=== PATIENT | female | born 1990 | race Hispanic/Latino ===

== ENCOUNTER 2016-12-19 19:33 | Observation (INO) | payer MEDICAID ==
[2016-12-19 19:33] VITALS: BMI 24.7
--- NOTE | 2016-12-19 20:06 | ED PDOC ---
Arrival/HPI - History of Present Illness Time/Duration: < week Symptom Onset: Gradual Symptom Course: Worsening Quality: Aching, Pressure, Throbbing Severity Level: 6 <Terry Sinha - Last Filed: 12/19/16 23:30> <Sylvester Kelloggmelva - Last Filed: 12/19/16 23:41> - General Chief Complaint: Dental Pain Time Seen by Provider: 12/19/16 19:39 - History of Present Illness Narrative History of Present Illness (Text): 12/19/16 20:22 26yo F with PMHx including Asthma here for evaluation of throat pain. Pain started few week ago as left sided mouth pain. She states that she went [place] [facility] [place] and was told she had a dental abscess. She was asked to follow up with a dentist and start taking oral ABX (Clindamycin 300mg TID x7 days) and Tylenol #3 with mild relief. She states that she started taking the Abx this morning. This morning, she woke up with pain that is radiating from left side of the mouth, down to her throat and neck so she came into the Emergency department for further evaluation. She denies any fevers or chills. No N/V/D. No Abd Pain. No Headaches. No gustatory changes. Does complain of difficulty swallowing. She states that she has been told she has "thyroid problem" in the past however, she has not followed up with a specialist. She states that she has had similar symptoms in the past and has been evaluated by a dentist who recommended getting lower left wisdom tooth extracted. Patient states that she is awaiting for her insurance to go through in order to be evaluated by an oral surgeon in order to proceed with the wisdom tooth extraction. PMHx: Asthma PSHx: Denies Social Hx: Smokes 1/2 pack per day, Denies any ETOH use, denies any illicit drugs NKDA 12/19/16 20:41 (Terry Sinha) Past Medical History - Provider Review Nursing Documentation Reviewed: Yes - Infectious Disease Hx of Infectious Diseases: None - Tetanus Immunization Tetanus Immunization: Unknown - Past Medical History Past Medical History: No Previous - Cardiac Hx Cardiac Disorders: No - Pulmonary Hx Asthma: Yes - Neurological Hx Neurological Disorder: No - HEENT Hx HEENT Disorder: No - Renal Hx Renal Disorder: No - Endocrine/Metabolic Hx Endocrine Disorders: No - Hematological/Oncological Hx Blood Disorders: No - Integumentary Hx Dermatological Disorder: No - Musculoskeletal/Rheumatological Hx Musculoskeletal Disorders: No - Gastrointestinal Hx Gastrointestinal Disorders: No - Genitourinary/Gynecological Hx Genitourinary Disorders: No - Psychiatric Hx Psychophysiologic Disorder: No Hx Substance Use: Yes (quit) - Past Surgical History Past Surgical History: No Previous - Anesthesia Hx Anesthesia: No Hx Anesthesia Reactions: No Hx Malignant Hyperthermia: No - Suicidal Assessment Feels Threatened In Home Enviroment: No <Terry Sinha - Last Filed: 12/19/16 23:30> Family/Social History - Physician Review Nursing Documentation Reviewed: Yes Family/Social History: No Known Family HX, Unknown Family HX Smoking Status: Heavy Smoker > 10 Cigarettes Daily Hx Alcohol Use: No Hx Substance Use: Yes (quit) Substance used: PCP Hx Substance Use Treatment: No <Terry Sinha - Last Filed: 12/19/16 23:30> Allergies/Home Meds <Terry Sinha - Last Filed: 12/19/16 23:30> <Geovanny Kellogg - Last Filed: 12/19/16 23:41> Allergies/Adverse Reactions: Allergies No Known Allergies Allergy (Verified 09/20/15 22:53) Home Medications: Home Meds Medication Instructions Recorded Confirmed buPROPion SR [Wellbutrin SR 150 MG] 1 tab PO DAILY 12/19/16 12/19/16 Review of Systems - Physician Review All systems were reviewed & negative as marked: Yes - Review of Systems Constitutional: absent: Fatigue, Weight Change, Fevers Eyes: absent: Vision Changes, Photophobia ENT: Sore Throat. absent: Hearing Changes, Tinnitus, Rhinorrhea Respiratory: absent: SOB, Cough, Wheezing Cardiovascular: absent: Chest Pain, Calf Pain, BLAKE Gastrointestinal: absent: Abdominal Pain, Nausea, Vomiting Genitourinary Female: absent: Dysuria Musculoskeletal: absent: Back Pain Skin: Abscess (Left mandibular/cheek swelling) Neurological: absent: Headache, Dizziness Endocrine: absent: Diaphoresis, Polyuria <Terry Sinha - Last Filed: 12/19/16 23:30> Physical Exam Vital Signs Reviewed: Yes Temperature: Afebrile Blood Pressure: Normal Pulse: Tachycardic Respiratory Rate: Normal Appearance: Positive for: Well-Appearing, Non-Toxic, Comfortable Pain Distress: Mild Mental Status: Positive for: Alert and Oriented X 3 - Systems Exam Head: Present: Atraumatic, Normocephalic Extroacular Muscles: Present: EOMI Mouth: Present: Moist Mucous Membranes, Normal Tounge, Other (left cheek swelling and tender to palpation. Dental abscess) Pharnyx: Present: Other (Thyromegaly noted. Tender to palpation of submandibular area. ). No: ERYTHEMA, EXUDATE, TONSILS ENLARGED, Peritonsilar Swelling, Muffled/Hoarse Voice, Strider Respiratory/Chest: Present: Clear to Auscultation, Good Air Exchange. No: Respiratory Distress, Accessory Muscle Use, Wheezes, Rhonchi Cardiovascular: Present: Normal S1, S2. No: Murmurs Abdomen: No: Tenderness, Distention, Rebound, Guarding, Rovsing's Sign Present Back: Present: Normal Inspection Upper Extremity: Present: Normal Inspection. No: Edema Lower Extremity: Present: Normal Inspection. No: Edema, CALF TENDERNESS Neurological: Present: GCS=15 Skin: Present: Warm, Other (Tender to palpation in submandibular area. Thyromegaly noted with tender to palpation. Erythema over skin in thyroid area) Psychiatric: Present: Alert, Oriented x 3 <Terry Sinha - Last Filed: 12/19/16 23:30> Medical Decision Making <Terry Sinha - Last Filed: 12/19/16 23:30> <Geovanny Kellogg - Last Filed: 12/19/16 23:41> ED Course and Treatment: 12/19/16 20:47 26yo F with Sore throat in the setting of left dental abscess - r/o Kar's - CT neck/Maxillofacial w/ contrast - CBC/CMP 12/19/16 23:30 Discussed with patient about her submandibular tenderness. Plan is for admission for IV abx and monitoring of submandibular region. - Prelim CT neck is negative for abscess or Kar's. - Discussed case with Retail Account Specialist. Will come evaluate the patient. - Added TSH, FT4 and Zosyn for abx coverage. - Dr. Tatyana malik who accepts patient to hospitalist service (Terry Sinha) Patient Seen With Resident: In agreement with resident note which contains more details about the patient. Patient was seen and evaluated with resident. Came up with plan and treatment together. A 26 year old female with throat pain. Additional HPI as noted by resident. On physical exam, patient has tender to palpation and swelling of left cheek, dental abscess, thyromegaly noted of pharynx and tender to palpation of submental area. Ordered CT neck soft tissue and CT maxillofacial and labs to rule out Kar's. 12/19/16 23:38 CT read as negative but ttp in the floor of the mouth with swelling in submental area; it is clinically concerning for a developing kar's - will place on observation on start on iv abx. Discussed with Dr. Joe for placement on the hospitalist service. (Geovanny Kellogg) - Lab Interpretations Lab Results: 12/19/16 20:55 12/19/16 20:55 Lab Results 12/19/16 20:55: Sodium 139, Potassium 4.1, Chloride 104, Carbon Dioxide 26, Anion Gap 13, BUN 12, Creatinine 0.8, Est GFR ( Amer) > 60, Est GFR (Non- Af Amer) > 60, Random Glucose 95, Calcium 9.4, Total Bilirubin 0.3, AST 17, ALT 16, Alkaline Phosphatase 56, Total Protein 6.6, Albumin 4.0, Globulin 2.7, Albumin/Globulin Ratio 1.5 12/19/16 20:55: WBC 6.5, RBC 3.98, Hgb 12.6, Hct 36.9, MCV 92.7, MCH 31.7, MCHC 34.1, RDW 12.8, Plt Count 228, MPV 9.7, Gran % 41.2 L, Lymph % (Auto) 41.2 H, Carl[place] % (Auto) 11.7 H, Eos % (Auto) 5.4 H, Baso % (Auto) 0.5, Gran # 2.69, Lymph # 2.7, Carl[place] # 0.8 H, Eos # 0.4, Baso # 0.03 - RAD Interpretation Radiology Orders: 12/19/16 20:31 NECK SOFT TISSUE W/CONTRAST [CT] Stat - Medication Orders Current Medication Orders: Piperacillin Sod/Tazobactam Sod (Zosyn 3.375 In Ns 100ml) 100 mls @ 200 mls/hr IVPB STAT STA PRN Reason: Protocol Stop: 12/19/16 23:50 Discontinued Medications Iohexol (Omnipaque 350 150 Ml) Confirm Administered Dose 150 ml .ROUTE .STK-MED ONE Stop: 12/19/16 22:06 - PA / 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 / has examined the patient and agrees with the treatment plan. <Terry Sinha - Last Filed: 12/19/16 23:30> Disposition/Present on Arrival - Present on Arrival Any Indicators Present on Arrival: No History of DVT/PE: No History of Uncontrolled Diabetes: No Urinary Catheter: No History of Decub. Ulcer: No History Surgical Site Infection Following: None - Disposition Have Diagnosis and Disposition been Completed?: Yes Disposition Time: 23:34 Patient Plan: Admission <Terry Sinha - Last Filed: 12/19/16 23:30> - Disposition Patient Plan: Observation <Geovanny Kellogg - Last Filed: 12/19/16 23:41> - Disposition Diagnosis: Dental abscess Disposition: HOSPITALIZED Patient Problems: Current Active Problems Problem Status Onset Dental abscess Acute Condition: FAIR Referrals: Gianfranco Kearns MD [Primary Care Provider] - Follow up with primary Forms: Pow[employer] by [employer] (Eritrean)
[2016-12-19 21:34] LABS: BASO # 0.03 K/mm3 (0.0-2.0); BASO % 0.5 % (0.0-3.0); EOS # 0.4 (0.0-0.7); EOS % 5.4 % (1.5-5.0); GRAN # 2.69 (1.4-6.5); GRAN % 41.2 % (50.0-68.0); HEMOGLOBIN 12.6 gm/dL (12.0-16.0); LYMPH # 2.7 (1.2-3.4); LYMPH % 41.2 % (22.0-35.0); MEAN CELL VOLUME 92.7 fL (80.0-105.0); MEAN CORPUSCULAR HEMOGLOBIN 31.7 pg (25.0-35.0); MEAN CORPUSCULAR HGB CONC 34.1 g/dl (31.0-37.0); MEAN PLATELET VOLUME 9.7 fl (7.0-11.0); MONO # 0.8 (0.1-0.6); MONO % 11.7 % (1.0-6.0); PLATELET COUNT 228 10^3/uL (120.0-450.0); RBC 3.98 10^6/uL (3.5-6.1); RED CELL DISTRIBUTION WIDTH 12.8 % (11.5-14.5); WHITE BLOOD COUNT 6.5 10^3/ul (4.5-11.0)
[2016-12-19 21:36] LABS: ALB/GLOB RATIO 1.5 (1.1-1.8); ALT/SGPT 16 U/L (7-56); AST/SGOT 17 U/L (15-39); BLOOD UREA NITROGEN 12 mg/dL (7-21); CALCIUM 9.4 mg/dL (8.4-10.5); GFR AFRICAN-AMERICAN > 60; GFR NON-AFRICAN AMERICAN > 60
--- NOTE | 2016-12-19 23:04 | CT ---
EXAM: CT Neck With Intravenous Contrast CLINICAL HISTORY: 26 years old, female; Pain; Neck pain and painful swallowing and throat pain; Patient HX: Dental infxn neck swelling. R/O anais's TECHNIQUE: Axial computed tomography images of the neck with intravenous contrast. This CT exam was performed using one or more of the following dose reduction techniques: automated exposure control, adjustment of the mA and/or kV according to patient size, and/or use of iterative reconstruction technique. Coronal and sagittal reformatted images were created and reviewed. CONTRAST: 96 mL of OMNIPAQUE 350 administered intravenously. COMPARISON: No relevant prior studies available. FINDINGS: Nasopharynx: Unremarkable. Oropharynx: No significant tonsillar enlargement. No peritonsillar abscess. Hypopharynx: Unremarkable. Larynx: Unremarkable. Normal epiglottis. Trachea: Unremarkable. Retropharyngeal space: Unremarkable. Submandibular/parotid glands: Unremarkable. Glands are normal in size. Thyroid: Mild diffuse enlargement. No discrete nodules. Bones/joints: No acute fracture. Soft tissues: Unremarkable. Vasculature: No acute findings. Lymph nodes: No pathologically enlarged lymph nodes. Sinuses: Mild mucosal thickening of ethmoid sinuses. Mild mucosal thickening of LEFT maxillary sinus. Minimal mucosal thickening of RIGHT maxillary sinus. Lung apices: Unremarkable as visualized. IMPRESSION: 1. No abscess. 2. Mild thyromegaly. 3. Sinus disease. 4. Incidental/non-acute findings are described above.
[2016-12-19] MEDS ORDERED: Piperacillin/Tazobact 3.375 gm 100 ML IVPB STA (23:21)
[2016-12-20] MEDS ORDERED: Aluminum Hydroxide/Magnesium 30 ML, DiphenhydrAMINE 75 MG, Lidocaine 2% Viscous 30 ML PO PRN (00:06)
[2016-12-20 00:09] LABS: FREE T4 1.31 ng/dL (0.78-2.19)
--- NOTE | 2016-12-20 00:22 | CP.PCM.HP ---
<Regulo Ríos - Last Filed: 12/20/16 00:15> History of Present Illness - History of Present Illness History of Present Illness: Regulo Ríos D.O. PGY-2, 24 hour call, Obs H&P CC: left lower jaw swelling and pain for multiple days 26 year old female with a PMH of asthma, never intubated, never hospitalized, and previous PCP addicition, now drug free, who presents to [facility] ER on 12/19/16 with complaints of left lower jaw swelling and pain. Patient states that for multiple days she has been having worsening pain and swelling of the left jaw. Patient states pain is 6-7/10 at it's worst, dull, constant, wrapping wrapping lower jaw and up on the left, not associated with any fevers, chills, headaches , blurry vision, but is associated with some nausea, with similar much milder episode in the past on the right side. Patient states she has been waiting on insurance authorization to get her left lower wisdom tooth removed but has been unable to get it done. Patient's previous episode on the right side was milder and resolved once patient had both right wisdom teeth removed. Patient states that she was at [facility] 2 days ago and was given clindamycin of which she's taken 4 doses and it did help with the swelling somewhat but now she has been getting pain and extension of the swelling down into the submandibular area so she got concerned and came in. PMH: as above PSH: wisdom tooth removal x2 SH: denies EtOH, occasional tobacco use for many years, previous PCP use now clean FH: mother has HTN, HLD, family hx of colon and breast CA Meds: albuterol inh PRN, rare use, clindamycin PO, wellbutrin for smoking cessation Allergies: NKA Present on Admission - Present on Admission Any Indicators Present on Admission: No Review of Systems - Constitutional Constitutional: absent: Chills, Fatigue, Fever, Headache - EENT Eyes: absent: Blind Spots, Blurred Vision, Change in Vision Ears: absent: Decreased Hearing, Ear Pain, Tinnitus, Abnormal Hearing - Cardiovascular Cardiovascular: absent: Chest Pain, Diaphoresis, Dyspnea - Respiratory Respiratory: absent: Cough, Dyspnea - Gastrointestinal Gastrointestinal: Nausea. absent: Abdominal Pain, Constipation, Diarrhea, Vomiting - Genitourinary Genitourinary: absent: Difficulty Urinating, Dysuria - Musculoskeletal Musculoskeletal: absent: Numbness, Stiffness - Integumentary Integumentary: Swelling. absent: Rash, Sores - Neurological Neurological: absent: Numbness, Tingling, Weakness Past Patient History - Infectious Disease Hx of Infectious Diseases: None - Tetanus Immunizations Tetanus Immunization: Unknown - Past Social History Smoking Status: Heavy Smoker > 10 Cigarettes Daily - CARDIAC Hx Cardiac Disorders: No - PULMONARY Hx Asthma: Yes - NEUROLOGICAL Hx Neurological Disorder: No - HEENT Hx HEENT Problems: No - RENAL Hx Chronic Kidney Disease: No - ENDOCRINE/METABOLIC Hx Endocrine Disorders: No - HEMATOLOGICAL/ONCOLOGICAL Hx Blood Disorders: No - INTEGUMENTARY Hx Dermatological Problems: No - MUSCULOSKELETAL/RHEUMATOLOGICAL Hx Musculoskeletal Disorders: No - GASTROINTESTINAL Hx Gastrointestinal Disorders: No - GENITOURINARY/GYNECOLOGICAL Hx Genitourinary Disorders: No - PSYCHIATRIC Hx Psychophysiologic Disorder: No Hx Substance Use: Yes (quit) - SURGICAL HISTORY Hx Surgeries: No - ANESTHESIA Hx Anesthesia: No Hx Anesthesia Reactions: No Hx Malignant Hyperthermia: No Meds Allergies/Adverse Reactions: Allergies Allergy/AdvReac Type Severity Reaction Status Date / Time nicotine Allergy RASH Verified 12/20/16 01:36 Physical Exam - Constitutional Additional comments: young female in NAD - Head Exam Head Exam: ATRAUMATIC, NORMOCEPHALIC - Eye Exam Eye Exam: EOMI, PERRL. absent: Conjunctival injection, Scleral icterus - ENT Exam ENT Exam: Mucous Membranes Moist, Normal Oropharynx, TM's Normal Bilaterally Additional comments: midline uvula, able to raise soft palate, mallampati 1, tonsils not enlarged, BL ear canals clear, no effusions, no TM perf - Neck Exam Additional comments: notable left sided jaw swelling, no definite fluctuance or otherwise noted, tenderness to palpation of left jaw by angle of mandible and submadibularly, some mild erythema - Respiratory Exam Respiratory Exam: Clear to Auscultation Bilateral. absent: Rales, Rhonchi, Wheezes - Cardiovascular Exam Cardiovascular Exam: RRR, +S1, +S2. absent: Gallop, Rubs, Systolic Murmur - GI/Abdominal Exam GI & Abdominal Exam: Normal Bowel Sounds, Soft. absent: Distended, Tenderness - Extremities Exam Extremities exam: Positive for: pedal pulses present. Negative for: calf tenderness, pedal edema, tenderness - Neurological Exam Neurological exam: Alert, CN II-XII Intact, Oriented x3 - Skin Skin Exam: Dry, Warm Results - Vital Signs Recent Vital Signs: Last Vital Signs Temp 98.8 F 12/19/16 19:57 Pulse 106 H 12/19/16 19:57 Resp 18 12/19/16 19:57 BP 119/74 12/19/16 19:57 Pulse Ox 97 12/19/16 19:57 - Labs Result Diagrams: 12/19/16 20:55 12/19/16 20:55 Assessment & Plan - Assessment and Plan (Free Text) Assessment: 26 year old female with a PMH of previous PCP abuse with left jaw pain and swelling which worsened despite outpatient antibiotic therapy Plan: 1. Left jaw and submandibular swelling and tenderness Poss abscess, CT of neck read as negative, no Kar's Given zosyn x1 in the ER Started on unasyn IV Afebrile No leukocytosis Apply warm compresses HOB 30 Encourage PO fluids Magic mouth wash PRN Pain control Vitals q8h 2. Tobacco abuse Encouraged smoking cessation, patient amenable Will add nicotine patch DVT ppx: SCDs - Date & Time Date: 12/20/16 Time: 00:05 <Ashlee Joe - Last Filed: 12/20/16 03:57> Results - Vital Signs Recent Vital Signs: Last Vital Signs Temp 98.9 F 12/20/16 02:40 Pulse 94 H 12/20/16 02:40 Resp 16 12/20/16 02:40 BP 113/72 12/20/16 02:40 Pulse Ox 98 12/20/16 01:59 - Labs Result Diagrams: 12/19/16 20:55 12/19/16 20:55 Attending/Attestation - Attestation I have personally seen and examined this patient.: Yes I have fully participated in the care of the patient.: Yes I have reviewed all pertinent clinical information: Yes Notes (Text): 12/20/16 03:49 Patient was seen when she was in bed # 4 in the ER. Agree with history , physical examination, assessment and plan.
[2016-12-20 02:00] VITALS: O2SAT 98
[2016-12-20 03:09] VITALS: BP 113/72; PULSE 94; RESP 16; TEMP 98.9
[2016-12-20] MEDS ORDERED: Oxycodone/Acetaminophen 5/325 mg Tab PO STA (03:48)
[2016-12-20] MEDS: Ampicillin/Sulbactam 3 GM in Sodium Chloride 0.9% 100 ML IVPB SCH ×2 (05:28→11:10)
[2016-12-20] MEDS ORDERED: buPROPion SR 150 MG TABLET PO SCH (10:00)
[2016-12-20] MEDS ORDERED: Morphine 2 mg/ml ISec IVP STA (10:13)
--- NOTE | 2016-12-20 15:24 | CP.PCM.DIS ---
<OlmanMey - Last Filed: 12/20/16 15:57> Provider - Provider Date of Admission: 12/19/16 23:33 Attending physician: Iveth Maher MD Primary care physician: Gianfranco Kearns MD Consults: ENT consult:Dr. Santos Time Spent in preparation of Discharge (in minutes): 20 Hospital Course - Lab Results Lab Results: Most Recent Lab Values WBC 6.5 10^3/ul (4.5-11.0) 12/19/16 20:55 RBC 3.98 10^6/uL (3.5-6.1) 12/19/16 20:55 Hgb 12.6 gm/dL (12.0-16.0) 12/19/16 20:55 Hct 36.9 % (36.0-48.0) 12/19/16 20:55 MCV 92.7 fL (80.0-105.0) 12/19/16 20:55 MCH 31.7 pg (25.0-35.0) 12/19/16 20:55 MCHC 34.1 g/dl (31.0-37.0) 12/19/16 20:55 RDW 12.8 % (11.5-14.5) 12/19/16 20:55 Plt Count 228 10^3/uL (120.0-450.0) 12/19/16 20:55 MPV 9.7 fl (7.0-11.0) 12/19/16 20:55 Gran % 41.2 % (50.0-68.0) L 12/19/16 20:55 Lymph % (Auto) 41.2 % (22.0-35.0) H 12/19/16 20:55 [place] % (Auto) 11.7 % (1.0-6.0) H 12/19/16 20:55 Eos % (Auto) 5.4 % (1.5-5.0) H 12/19/16 20:55 Baso % (Auto) 0.5 % (0.0-3.0) 12/19/16 20:55 Gran # 2.69 (1.4-6.5) 12/19/16 20:55 Lymph # 2.7 (1.2-3.4) 12/19/16 20:55 [place] # 0.8 (0.1-0.6) H 12/19/16 20:55 Eos # 0.4 (0.0-0.7) 12/19/16 20:55 Baso # 0.03 K/mm3 (0.0-2.0) 12/19/16 20:55 Sodium 139 mmol/L (132-148) 12/19/16 20:55 Potassium 4.1 mmol/L (3.6-5.0) 12/19/16 20:55 Chloride 104 mmol/L (95-110) 12/19/16 20:55 Carbon Dioxide 26 mmol/L (21-33) 12/19/16 20:55 Anion Gap 13 (10-20) 12/19/16 20:55 BUN 12 mg/dL (7-21) 12/19/16 20:55 Creatinine 0.8 mg/dL (0.5-1.4) 12/19/16 20:55 Est GFR ( Amer) > 60 12/19/16 20:55 Est GFR (Non-Af Amer) > 60 12/19/16 20:55 Random Glucose 95 mg/dL (70-110) 12/19/16 20:55 Calcium 9.4 mg/dL (8.4-10.5) 12/19/16 20:55 Total Bilirubin 0.3 mg/dL (0.2-1.3) 12/19/16 20:55 AST 17 U/L (15-39) 12/19/16 20:55 ALT 16 U/L (7-56) 12/19/16 20:55 Alkaline Phosphatase 56 U/L (38-133) 12/19/16 20:55 Total Protein 6.6 g/dL (5.8-8.3) 12/19/16 20:55 Albumin 4.0 g/dL (3.0-4.8) 12/19/16 20:55 Globulin 2.7 gm/dL 12/19/16 20:55 Albumin/Globulin Ratio 1.5 (1.1-1.8) 12/19/16 20:55 Free T4 1.31 ng/dL (0.78-2.19) 12/19/16 20:55 TSH 3rd Generation 1.68 mIU/mL (0.46-4.68) 12/19/16 20:55 - Hospital Course Hospital Course: CC: left lower jaw swelling and pain for multiple days arrived at the ED 12/19/16 20:06 for left lower jaw swelling and pain. Patient states she has left lower jaw swelling an pain, which has occured for multiple days, worsening in nature. Patient rates the pain 7/10. Dull, constant. Patient denied fever, chills, headaches, blurry vision, nausea. Patient has had a milder jaw pain on the right side in the past, resolved with right wisdom teeth removal. Patient states she has been waiting on insurance authorization to get her left lower wisdom tooth removed but has been unable to get it done. Patient was given clindamycin at [facility] 2 days ago. 4 doses were taken. Pain has extended to neck (left sided) and left submandibular area. PT S&E at bedside. SAY. Dr. Santos consulted for ENT PMH: as above PSH: wisdom tooth removal x2 SH: denies EtOH, occasional tobacco use for many years, previous PCP use now clean FH: mother has HTN, HLD, family hx of colon and breast CA Meds: albuterol inh PRN, rare use, clindamycin PO, wellbutrin for smoking cessation Allergies: NKA Patient was given Zosyn in the ED.Patient was given nicotine patches, ibuprofen x 1 dose at 2 am , percocet x 1 dose at 3am , tylenol for pain around 6am.Patient was given 2 mg IVP after rounds due to the severity of the patient' s pain. Patient is stable enough to discharge and have patient return to ED if symptoms worsen. [facility] [place] [facility] to treat the possible abscess/infection - Date & Time of H&P Date of H&P: 12/20/16 Time of H&P: 15:58 Discharge Exam - Head Exam Head Exam: ATRAUMATIC, NORMOCEPHALIC - Eye Exam Eye Exam: EOMI, Normal appearance - ENT Exam ENT Exam: Mucous Membranes Moist. absent: Normal Oropharynx Additional comments: left gum inflammation (erythema) primarily in left lower molars. No signs of bleeding, - Neck Exam Neck exam: Full Rom, Tenderness Additional comments: left neck pain. no signs of obstructed breathing, tracheal deviation or thyromegaly - Cardiovascular Exam Cardiovascular Exam: REGULAR RHYTHM - Extremities Exam Extremities exam: full ROM - Back Exam Back exam: FULL ROM - Neurological Exam Neurological exam: Alert, Normal Gait, Oriented x3 - Psychiatric Exam Psychiatric exam: Flat Affect, Normal Mood - Skin Skin Exam: Dry, Intact, Normal Color, Warm Discharge Plan - Discharge Medications Prescriptions: Amoxicillin 500 mg PO Q8 #15 tablet oxyCODONE/Acetaminophen [Percocet 5/325 mg Tab] 1 ea PO Q6 PRN #9 tab PRN Reason: Pain, Moderate (4-7) - Follow Up Plan Condition: FAIR Disposition: HOME/ ROUTINE Patient education suggested?: Yes Instructions: Dental Abscess (GEN), Abscess (GEN) Additional Instructions: 1. Follow up with PMD in 1 week. 2. Follow up with [facility] dental surgeon on Tuesday. return to ED if symptoms worse (ie: numbness, difficulty swallowing, difficulty breathing, larger area of swelling) Referrals: Gianfranco Kearsn MD [Primary Care Provider] - <Iveth Maher - Last Filed: 12/20/16 17:06> Provider - Provider Date of Admission: 12/19/16 23:33 Attending physician: Iveth Maher MD Primary care physician: Gianfranco Kearns MD Hospital Course - Lab Results Lab Results: Most Recent Lab Values WBC 6.5 10^3/ul (4.5-11.0) 12/19/16 20:55 RBC 3.98 10^6/uL (3.5-6.1) 12/19/16 20:55 Hgb 12.6 gm/dL (12.0-16.0) 12/19/16 20:55 Hct 36.9 % (36.0-48.0) 12/19/16 20:55 MCV 92.7 fL (80.0-105.0) 12/19/16 20:55 MCH 31.7 pg (25.0-35.0) 12/19/16 20:55 MCHC 34.1 g/dl (31.0-37.0) 12/19/16 20:55 RDW 12.8 % (11.5-14.5) 12/19/16 20:55 Plt Count 228 10^3/uL (120.0-450.0) 12/19/16 20:55 MPV 9.7 fl (7.0-11.0) 12/19/16 20:55 Gran % 41.2 % (50.0-68.0) L 12/19/16 20:55 Lymph % (Auto) 41.2 % (22.0-35.0) H 12/19/16 20:55 [place] % (Auto) 11.7 % (1.0-6.0) H 12/19/16 20:55 Eos % (Auto) 5.4 % (1.5-5.0) H 12/19/16 20:55 Baso % (Auto) 0.5 % (0.0-3.0) 12/19/16 20:55 Gran # 2.69 (1.4-6.5) 12/19/16 20:55 Lymph # 2.7 (1.2-3.4) 12/19/16 20:55 [place] # 0.8 (0.1-0.6) H 12/19/16 20:55 Eos # 0.4 (0.0-0.7) 12/19/16 20:55 Baso # 0.03 K/mm3 (0.0-2.0) 12/19/16 20:55 Sodium 139 mmol/L (132-148) 12/19/16 20:55 Potassium 4.1 mmol/L (3.6-5.0) 12/19/16 20:55 Chloride 104 mmol/L (95-110) 12/19/16 20:55 Carbon Dioxide 26 mmol/L (21-33) 12/19/16 20:55 Anion Gap 13 (10-20) 12/19/16 20:55 BUN 12 mg/dL (7-21) 12/19/16 20:55 Creatinine 0.8 mg/dL (0.5-1.4) 12/19/16 20:55 Est GFR ( Amer) > 60 12/19/16 20:55 Est GFR (Non-Af Amer) > 60 12/19/16 20:55 Random Glucose 95 mg/dL (70-110) 12/19/16 20:55 Calcium 9.4 mg/dL (8.4-10.5) 12/19/16 20:55 Total Bilirubin 0.3 mg/dL (0.2-1.3) 12/19/16 20:55 AST 17 U/L (15-39) 12/19/16 20:55 ALT 16 U/L (7-56) 12/19/16 20:55 Alkaline Phosphatase 56 U/L (38-133) 12/19/16 20:55 Total Protein 6.6 g/dL (5.8-8.3) 12/19/16 20:55 Albumin 4.0 g/dL (3.0-4.8) 12/19/16 20:55 Globulin 2.7 gm/dL 12/19/16 20:55 Albumin/Globulin Ratio 1.5 (1.1-1.8) 12/19/16 20:55 Free T4 1.31 ng/dL (0.78-2.19) 12/19/16 20:55 TSH 3rd Generation 1.68 mIU/mL (0.46-4.68) 12/19/16 20:55 Attending/Attestation - Attestation I have personally seen and examined this patient.: Yes I have fully participated in the care of the patient.: Yes I have reviewed all pertinent clinical information, including history, physical exam and plan: Yes Notes (Text): 12/20/16 17:03 attending note; Patient seen and examined with resident. Patient is a 26-year female admitted with left sided dental pain/ wisdom tooth. the patient was evaluated by [facility] dentist last month. currently mild swelling in the left face. No abscess. treated with IV Unasyn. We will be discharged with home with by mouth amoxicillin and Percocet. Follow-up with [facility] on tuesday. Diagnosis; wisdom tooth Facial swelling Dental caries
== END 2016-12-20 15:34 | disposition home or self-care (01) ==
LOC: ED 19:33 → ERH 23:33 → 3RNO 12-20 02:09
PROVIDERS: ADMIT Internal Medicine; ATTEND Internal Medicine
DX: R22.9 Localized swelling, mass and lump, unspecified (principal); R68.84 Jaw pain; K02.9 Dental caries, unspecified; J45.909 Unspecified asthma, uncomplicated; R13.10 Dysphagia, unspecified; F17.210 Nicotine dependence, cigarettes, uncomplicated
CPT/HCPCS: 70491; 80053; 84439; 84443; 85025; 99283; G0378; J0295; J2270; J2543; Q9967

== ENCOUNTER 2017-11-20 13:03 | Emergency (ER) | payer MEDICAID ==
[2017-11-20 13:04] VITALS: BMI 24.7
[2017-11-20 13:19] VITALS: RESP 18; TEMP 97.7; O2SAT 99
[2017-11-20] MEDS ORDERED: Insulin Regular 100 UNITS in Sodium Chloride 0.9% 99 ML IV PRN (13:24)
--- NOTE | 2017-11-20 13:39 | ED PDOC ---
Arrival/HPI - General Chief Complaint: Dental Pain Time Seen by Provider: 11/20/17 13:17 Historian: Patient - History of Present Illness Narrative History of Present Illness (Text): 11/20/17 13:15 A 27 year old female, whose past medical history includes asthma, presents to the emergency department complaining of dental pain and left-side facial swelling. Patient reports visiting [facility] for evaluation of dental pain and swelling, due to it becoming worse, and was prescribed Amoxicillin and Tylenol Codeine. Patient had some relief with the Tylenol Codeine until it caused her to vomit. Notes also experiencing difficulty eating/drinking secondary to nausea. Patient denies any other complaints at this time. Also, patient mentions she has an appointment at [facility] dental clinic to have left wisdom tooth removed.tomorrow. She states that at the last appointment, she did have an intraoral drainage which obtained a small amount of pus. Symptom Onset: Gradual Symptom Course: Unchanged, Worsening Past Medical History - Provider Review Nursing Documentation Reviewed: Yes - Infectious Disease Hx of Infectious Diseases: None - Tetanus Immunization Tetanus Immunization: Unknown - Reproductive Menopause: No - Past Medical History Past Medical History: No Previous - Cardiac Hx Cardiac Disorders: No - Pulmonary Hx Asthma: Yes - Neurological Hx Neurological Disorder: No - HEENT Hx HEENT Disorder: No - Renal Hx Renal Disorder: No - Endocrine/Metabolic Hx Endocrine Disorders: No - Hematological/Oncological Hx Blood Disorders: No - Integumentary Hx Dermatological Disorder: No - Musculoskeletal/Rheumatological Hx Falls: No - Gastrointestinal Hx Gastrointestinal Disorders: No - Genitourinary/Gynecological Hx Genitourinary Disorders: No - Psychiatric Hx Psychophysiologic Disorder: No Hx Substance Use: Yes (quit) - Past Surgical History Past Surgical History: No Previous - Anesthesia Hx Anesthesia: No Hx Anesthesia Reactions: No Hx Malignant Hyperthermia: No - Suicidal Assessment Feels Threatened In Home Enviroment: No Family/Social History - Physician Review Nursing Documentation Reviewed: Yes Family/Social History: No Known Family HX Smoking Status: Current Some Days Smoker Hx Alcohol Use: No Hx Substance Use: Yes (quit) Substance used: PCP Hx Substance Use Treatment: No Allergies/Home Meds Allergies/Adverse Reactions: Allergies nicotine Allergy (Verified 12/20/16 01:36) RASH Home Medications: Home Meds Medication Instructions Recorded Confirmed buPROPion SR [Wellbutrin SR 150 MG] 1 tab PO DAILY 12/19/16 12/19/16 Review of Systems - Physician Review All systems were reviewed & negative as marked: Yes - Review of Systems ENT: Other (dental pain with left-side facial swelling.) Gastrointestinal: Nausea, Vomiting (occurred when taking prescribed Tylenol Codeine.), Appetite Changes (difficulty eating/drinking secondary to nausea.) Physical Exam - Physical Exam Narrative Physical Exam (Text): Constitutional: No acute distress. Head: Normocephalic. Atraumatic. Eyes: PERRL. ENT: Moist mucous membranes. Uvula midline. No peritonsillar abscess. Positive trismus. Neck: Supple. No nuchal rigidity Cardiovascular: Regular rate. Chest: No tenderness. Respiratory: Clear to auscultation bilaterally. GI: Soft. Nontender. Nondistended. Back: No CVA tenderness. Musculoskeletal: No tenderness or swelling of extremities. Skin: No rash. Neurologic: Alert, no focal deficit. Vital Signs Reviewed: Yes Vital Signs Temp Pulse Resp BP Pulse Ox 11/20/17 15:04 91 H 18 114/65 99 11/20/17 13:18 97.7 F 100 H 18 116/69 99 Temperature: Afebrile Blood Pressure: Normal Pulse: Regular Respiratory Rate: Normal Appearance: Positive for: Well-Appearing, Non-Toxic, Comfortable Pain Distress: None Mental Status: Positive for: Alert and Oriented X 3 Medical Decision Making ED Course and Treatment: 11/20/17 13:18 Impression: 27 year old female with dental pain and left-side facial swelling. Physical exam shows no nuchal rigidity; uvula midline, no peritonsillar abscess , positive trismus. Plan: -- Zofran -- Reassess and disposition Prior Visits: Notes and results from previous visits were reviewed. Patient was last seen in the emergency department on 12/19/2016 for throat and dental pain. Patient was admitted to hospital. Progress Notes: Patient given Percocet after Zofran, was able to keep medication down, states medication for nausea was very effective and feels comfortable to go home and continue her medications with Zofran. I encouraged patient to keep appointment for dental tomorrow and should she miss appointment and there is any worsening fever, stiff neck, dyspnea, vomiting, swelling, she should return to an ER immediately. - Medication Orders Current Medication Orders: Discontinued Medications Ondansetron HCl (Zofran Odt) 8 mg PO STAT STA Stop: 11/20/17 13:19 Last Admin: 11/20/17 13:46 Dose: 8 mg Oxycodone/Acetaminophen (Percocet 5/325 Mg Tab) 1 tab PO STAT STA Stop: 11/20/17 13:58 Last Admin: 11/20/17 14:40 Dose: 1 tab MAR Pain Assessment Document 11/20/17 14:40 TOPHER (Rec: 11/20/17 14:42 TOPHER [id number]) Pain Reassessment Is this a pain reassessment? Yes Presence of Pain Presence of Pain Yes Pain Scale Used Pain Scale Used Numeric Description Description Constant Intensity of Pain at present 10 - Scribe Statement The provider has reviewed the documentation as recorded by the Mikel Patel Provider Scribe Attestation: All medical record entries made by the Scribe were at my direction and personally dictated by me. I have reviewed the chart and agree that the record accurately reflects my personal performance of the history, physical exam, medical decision making, and the department course for this patient. I have also personally directed, reviewed, and agree with the discharge instructions and disposition. Disposition/Present on Arrival - Present on Arrival Any Indicators Present on Arrival: No History of DVT/PE: No History of Uncontrolled Diabetes: No Urinary Catheter: No History of Decub. Ulcer: No History Surgical Site Infection Following: None - Disposition Have Diagnosis and Disposition been Completed?: Yes Diagnosis: Pain, dental Disposition: HOME/ ROUTINE Disposition Time: 15:34 Patient Plan: Discharge Condition: STABLE Discharge Instructions (ExitCare): Dental Pain (DC) Prescriptions: Ondansetron ODT [Zofran ODT] 8 mg PO Q8H #12 odt Forms: [employer] ([place])
[2017-11-20] MEDS ORDERED: Oxycodone/Acetaminophen 5/325 mg Tab PO STA (13:57)
[2017-11-20 15:16] VITALS: BP 114/65; PULSE 91
== END 2017-11-20 15:37 | disposition home or self-care (01) ==
LOC: ED 13:03
DX: K08.89 Other specified disorders of teeth and supporting structures (principal)

== ENCOUNTER 2018-03-18 20:30 | Emergency (ER) | payer MEDICAID ==
[2018-03-18 22:09] VITALS: RESP 18; TEMP 98.1; BMI 24.0
[2018-03-18] MEDS ORDERED: Sodium Chloride 0.9% 1,000 ML IV STA (23:01)
--- NOTE | 2018-03-18 23:13 | ED PDOC ---
Arrival/HPI <Robin Peterson - Last Filed: 03/19/18 00:41> - General Historian: Patient - History of Present Illness Narrative History of Present Illness (Text): 03/18/18 23:10 28 y/o female, no significant pmh, allergic to nicotine, c/o nasal congestion/sinus headache/vomiting and coughing x 3 days. Pt. stated that she has nasal congestion, associated with sinus congestion, stated that has been coughing associated with vomiting after excessive coughing, no night sweat, no rash, no dizziness, no numbness or tingling, no other medical or psychological complaints. <Jonathan Bonilla - Last Filed: 03/19/18 02:17> - General Chief Complaint: Flu-like Symptoms Time Seen by Provider: 03/18/18 23:01 Past Medical History - Provider Review Nursing Documentation Reviewed: Yes - Infectious Disease Hx of Infectious Diseases: None - Tetanus Immunization Tetanus Immunization: Unknown - Past Medical History Past Medical History: No Previous - Cardiac Hx Cardiac Disorders: No - Pulmonary Hx Asthma: Yes - Neurological Hx Neurological Disorder: No - HEENT Hx HEENT Disorder: No - Renal Hx Renal Disorder: No - Endocrine/Metabolic Hx Endocrine Disorders: No - Hematological/Oncological Hx Blood Disorders: No - Integumentary Hx Dermatological Disorder: No - Musculoskeletal/Rheumatological Hx Falls: No - Gastrointestinal Hx Gastrointestinal Disorders: No - Genitourinary/Gynecological Hx Genitourinary Disorders: No - Psychiatric Hx Psychophysiologic Disorder: No Hx Substance Use: Yes (quit) - Past Surgical History Past Surgical History: No Previous - Anesthesia Hx Anesthesia: No Hx Anesthesia Reactions: No Hx Malignant Hyperthermia: No - Suicidal Assessment Feels Threatened In Home Enviroment: No <Jonathan Bonilla - Last Filed: 03/19/18 02:17> Family/Social History - Physician Review Nursing Documentation Reviewed: Yes Family/Social History: Unknown Family HX Smoking Status: Current Some Days Smoker Hx Alcohol Use: No Hx Substance Use: Yes (quit) Substance used: PCP Hx Substance Use Treatment: No <Jonathan Bonilla - Last Filed: 03/19/18 02:17> Allergies/Home Meds <Robin Peterson - Last Filed: 03/19/18 00:41> <Jonathan Bonilla - Last Filed: 03/19/18 02:17> Allergies/Adverse Reactions: Allergies nicotine Allergy (Verified 08/07/17 01:36) RASH Review of Systems - Review of Systems Constitutional: absent: Fatigue, Fevers Eyes: absent: Vision Changes ENT: Rhinorrhea, Sinus Congestion. absent: Sore Throat Respiratory: Cough. absent: SOB, Sputum, Wheezing Cardiovascular: absent: Chest Pain Gastrointestinal: Vomiting. absent: Abdominal Pain, Diarrhea, Nausea Musculoskeletal: absent: Arthralgias, Back Pain, Myalgias Skin: absent: Rash, Pruritis Neurological: absent: Headache, Dizziness Psychiatric: absent: Anxiety, Depression, Suicidal Ideation <Jonathan Bonilla - Last Filed: 03/19/18 02:17> Physical Exam Vital Signs Temp Pulse Resp BP Pulse Ox 03/18/18 22:08 98.1 F 119 H 18 116/74 99 <Robin ePterson - Last Filed: 03/19/18 00:41> Vital Signs Reviewed: Yes Vital Signs Temp Pulse Resp BP Pulse Ox 03/18/18 22:08 98.1 F 119 H 18 116/74 99 Temperature: Afebrile Blood Pressure: Normal Pulse: Tachycardic Respiratory Rate: Normal Appearance: Positive for: Well-Appearing, Non-Toxic, Comfortable Pain Distress: Moderate Mental Status: Positive for: Alert and Oriented X 3 - Systems Exam Head: Present: Atraumatic, Normocephalic, Other (+lt. maxillary and sinus tenderness with no facial or periorbital swelling. ). No: Tenderness, Contusion, Swelling, Ecchymosis, Abrasion, Laceration Pupils: Present: PERRL Extroacular Muscles: Present: EOMI Conjunctiva: Present: Normal Ears: Present: NORMAL TM, Normal Canal. No: Erythema, TM Bulging, Fluid, TM Perf Mouth: Present: Moist Mucous Membranes Pharnyx: No: ERYTHEMA, EXUDATE, TONSILS ENLARGED, Peritonsilar Swelling, Uvular Deviation, Muffled/Hoarse Voice Nose (External): Present: Atraumatic. No: Abrasion, Contusion, Laceration Nose (Internal): Present: Normal Inspection, No Active Bleeding. No: Rhinorrhea, Septal Hematoma, Epistaxis Neck: Present: Normal Range of Motion, Trachea Midline. No: Meningeal Signs, MIDLINE TENDERNESS, Paraspinal Tenderness, Lymphadenopathy Respiratory/Chest: Present: Clear to Auscultation, Good Air Exchange, Rhonchi. No: Respiratory Distress, Accessory Muscle Use, Wheezes, Decreased Breath Sounds, Rales, Retracting, Tachypneic Cardiovascular: Present: Regular Rate and Rhythm, Normal S1, S2. No: Murmurs Abdomen: Present: Normal Bowel Sounds. No: Tenderness, Distention, Peritoneal Signs, Rebound, Guarding Back: Present: Normal Inspection. No: CVA Tenderness, Midline Tenderness, Paraspinal Tenderness, Pain with Leg Raise, Decubitus Ulcer Upper Extremity: Present: Normal Inspection, Normal ROM, NORMAL PULSES, Capillary Refill < 2s. No: Cyanosis, Edema, Deformity Lower Extremity: Present: Normal Inspection, NORMAL PULSES, Normal ROM, Neurovascularly Intact, Capillary Refill < 2 s. No: Edema, Tenderness, Swelling, Deformity Neurological: Present: GCS=15, CN II-XII Intact, Speech Normal, Motor Func Grossly Intact, Normal Cerebellar Funct, Gait Normal, Memory Normal Skin: Present: Warm, Dry, Normal Color. No: Rashes, Diaphoretic, Erythematous Lymphatic: No: Cervical Adenopathy Psychiatric: Present: Alert, Oriented x 3, Normal Insight, Normal Concentration <Jonathan Bonilla Q - Last Filed: 03/19/18 02:17> Medical Decision Making - Lab Interpretations Lab Results: 03/18/18 00:18 03/18/18 00:18 Lab Results 03/18/18 00:18: Sodium 140, Potassium 3.4 L, Chloride 108 H, Carbon Dioxide 22, Anion Gap 14, BUN 17, Creatinine 0.5 L, Est GFR ( Amer) > 60, Est GFR (Non-Af Amer) > 60, Random Glucose 105, Calcium 9.3, Total Bilirubin 0.3, AST 25, ALT 21, Alkaline Phosphatase 60, Total Protein 7.7, Albumin 4.3, Globulin 3.4, Albumin/Globulin Ratio 1.3 03/18/18 00:18: WBC 6.0, RBC 4.43, Hgb 13.8, Hct 40.5, MCV 91.4, MCH 31.2, MCHC 34.1, RDW 13.0, Plt Count 316, MPV 9.4, Gran % 61.6, Lymph % (Auto) 27.7, [place] % (Auto) 10.1 H, Eos % (Auto) 0.3 L, Baso % (Auto) 0.3, Gran # 3.71, Lymph # (Auto) 1.7, [place] # (Auto) 0.6, Eos # (Auto) 0.0, Baso # (Auto) 0.02 - RAD Interpretation Radiology Orders: 03/18/18 23:09 CHEST PORTABLE [RAD] Stat - Medication Orders Current Medication Orders: Discontinued Medications Sodium Chloride (Sodium Chloride 0.9%) 1,000 mls @ 999 mls/hr IV .Q1H1M STA Stop: 03/19/18 00:01 Last Admin: 03/18/18 23:34 Dose: 999 mls/hr eMAR Start Stop Document 03/18/18 23:34 JOL (Rec: 03/18/18 23:35 [id number] Intravenous Solution Start Date 03/18/18 Start Time 23:34 End Date 03/19/18 End time 00:35 Total Infusion Time 61 Ketorolac Tromethamine (Toradol) 30 mg IVP STAT STA Stop: 03/18/18 23:02 Last Admin: 03/18/18 23:34 Dose: 30 mg MAR Pain Assessment Document 03/18/18 23:34 JOL (Rec: 03/18/18 23:34 [id number]) Pain Reassessment Is this a pain reassessment? No Sleep Is patient sleeping during reassessment? 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 Description Intensity of Pain at present 7 IVP Administration Document 03/18/18 23:34 JOL (Rec: 03/18/18 23:34 [id number]) Charges for Administration # of IVP Administrations 1 Metoclopramide HCl (Reglan) 10 mg IVP STAT STA Stop: 03/18/18 23:10 Last Admin: 03/18/18 23:34 Dose: 10 mg IVP Administration Document 03/18/18 23:34 JOL (Rec: 03/18/18 23:34 [id number]) Charges for Administration # of IVP Administrations 1 <Robin Peterson - Last Filed: 03/19/18 00:41> ED Course and Treatment: 03/18/18 23:15 -labs -cxr -IVF/toradol/reglan -Observe and reassess 03/19/18 01:07 EDT -Urine hcg is negative -Labs show no acute findings with potassium 3.4 (potassium chloride 20meq po) -CXR ER wet read with no active disease 03/19/18 01:18 EDT -Pt. feels better but want more pain medication, percocet ordered, CT head ordered. 03/19/18 01:11 EST -Pt. remains tachy around 110s, dimer and thyroid panel ordered, another fluid ordered 03/19/18 02:14 -EKG: ST @ 111 BPM, no ST elevation or depression, no T wave inversion. -Dimer is negative -Thyroid panel TSH is 0.17 (low) and normal T4, subclinical hyperthyroidism, recommend to repeat in 1 month with pmd and hybrid powertrain development engineer -Pt. still having headache, request more pain med, mother at the bed side and requesting more pain med, morphine 4mg ordered. -I recommend the patient to have lumbar puncture to check the pressure and admission for neurologist and cardiac monitoring but she refused to continue the care or any procedure, stated that she wants to go home after morphine 4mg IV -AMA AMA ER The patient refuses to stay in the Emergency Room (ER) to continue the care and wishes to leave the emergency department against my medical advice. Patient was told that staying in the ER is necessary and a full explanation of the reasons why was given, and understood by the patient with alert and oriented x4. The risk of leaving were explained in laymans term and including but not limited to pseudotumor cerebri, tumor, neurological deficits, organ failure cardiac arrythmia, thyroid disorder, pain, worsening of condition, permanent disability and from an undiagnosed or untreated condition. The patient accepts these risks, and is in my judgment is competent and capable of understanding the clinical situation and explanation of the risk of leaving. The patient is able to verbally repeated me back the above explained risks and benefits back to me, and verbally expressed understanding. Patient was given the opportunity to ask questions and change mind. The patient was instructed regarding the best care for the present symptoms, and to follow up as soon as possible with the primary care doctor including specialist or return to the emergency department at any time for continuing care. -You sign out against medical advice. You are given flonase, claritin, augmentin, zofran, motrin but this is not the standard of care. You were recommended to be admitted, stay hydrated, follow up with your own pmd and ENT/neurologist/hybrid powertrain development engineer within 2 days, return to the ER for any new or worsening signs. - RAD Interpretation Narrative RAD Interpretations (Text): EXAM: CT SCAN OF THE BRAIN WITHOUT IV CONTRAST Electronically signed on Mar 19, 2018 2:04:18 AM EST by: Brayan Almaraz M.D FINDING: Normal size of the ventricles and extra-axial spaces for the patient's age. Normal white matter tracts of the supratentorial brain. Normal basal ganglia and thalami. Normal brainstem. Normal cerebellum. There is no demonstrated extra-axial, intraparenchymal, or intraventricular hemorrhage. There are no findings of an acute ischemic infarction. Normal calvarium. There is no demonstrated fracture. Normal soft tissue structures. Mild chronic mucosal inflammatory changes of the maxillary sinuses and ethmoid air cells. Normal remaining visualized paranasal sinuses. IMPRESSION: Normal unenhanced CT scan of the brain. Mild chronic mucosal inflammatory changes of the maxillary sinuses and ethmoid air cells. Radiology Orders: 03/18/18 23:09 CHEST PORTABLE [RAD] Stat Chest xray: Community Administrator: Radiologist - Medication Orders Current Medication Orders: Sodium Chloride (Sodium Chloride 0.9%) 1,000 mls @ 999 mls/hr IV .Q1H1M STA Stop: 03/19/18 00:01 Metoclopramide HCl (Reglan) 10 mg IVP STAT STA Stop: 03/18/18 23:10 Discontinued Medications Ketorolac Tromethamine (Toradol) 30 mg IVP STAT STA Stop: 03/18/18 23:02 <Jonathan Bonilla - Last Filed: 03/19/18 02:17> - PA / HEAD CHOPPER / Resident Statement MD/DO has reviewed & agrees with the documentation as recorded. <Robin Peterson Last Filed: 03/19/18 00:41> - PA / HEAD CHOPPER / Resident Statement / has reviewed & agrees with the documentation as recorded. <Jonathan Bonilla - Last Filed: 03/19/18 02:17> Disposition/Present on Arrival <Robin Peterson - Last Filed: 03/19/18 00:41> - Present on Arrival Any Indicators Present on Arrival: No History of DVT/PE: No History of Uncontrolled Diabetes: No Urinary Catheter: No History of Decub. Ulcer: No History Surgical Site Infection Following: None - Disposition Have Diagnosis and Disposition been Completed?: Yes Disposition Time: 02:10 <Jonathan Bonilla - Last Filed: 03/19/18 02:17> - Disposition Diagnosis: Sinusitis, Hypokalemia, Headache, Subclinical hyperthyroidism Disposition: AGAINST MEDICAL ADVICE Patient Problems: Current Active Problems Problem Status Onset Sinusitis Acute Hypokalemia Acute Headache Acute Subclinical hyperthyroidism Acute Condition: GOOD Additional Instructions: -You sign out against medical advice. You are given flonase, claritin, augmentin, zofran, motrin but this is not the standard of care. You were recommended to be admitted, stay hydrated, follow up with your own pmd and ENT/neurologist/hybrid powertrain development engineer within 2 days, return to the ER for any new or worsening signs. Prescriptions: Amoxicillin/Clavulanate [Augmentin 875 MG-125 MG] 1 tab PO BID #14 tab Fluticasone Propionate [Flonase] 1 spr NS DAILY #1 bottle RX: Ibuprofen [Motrin Tab] 600 mg PO QID PRN #30 tab PRN Reason: Other Loratadine [Claritin] 10 mg PO DAILY #7 tab Ondansetron [Zofran] 4 mg PO Q8H PRN #10 tab PRN Reason: Nausea/Vomiting Referrals: Awilda Valdez DO [Primary Care Provider] - Follow up with primary Thomas Alexander MD [Staff Provider] - Follow up with primary Mikhail Erickson DO [Staff Provider] - Follow up with primary Elyse Link MD [Medical Doctor] - Follow up with primary Forms: [employer] ([place]), WORK NOTE
[2018-03-18 23:53] LABS: BASO # 0.02 K/mm3 (0.0-2.0); BASO % 0.3 % (0.0-3.0); EOS % 0.3 % (1.5-5.0); GRAN # 3.71 (1.4-6.5); GRAN % 61.6 % (50.0-68.0); HEMOGLOBIN 13.8 g/dL (12.0-16.0); LYMPH # 1.7 (1.2-3.4); LYMPH % 27.7 % (22.0-35.0); MEAN CELL VOLUME 91.4 fl (80.0-105.0); MEAN CORPUSCULAR HEMOGLOBIN 31.2 pg (25.0-35.0); MEAN CORPUSCULAR HGB CONC 34.1 g/dl (31.0-37.0); MEAN PLATELET VOLUME 9.4 fl (7.0-11.0); MONO # 0.6 (0.1-0.6); MONO % 10.1 % (1.0-6.0); RBC 4.43 10^6/uL (3.5-6.1)
[2018-03-18 23:54] LABS: ALB/GLOB RATIO 1.3 (1.1-1.8); ALBUMIN 4.3 g/dL (3.0-4.8); ALT/SGPT 21 U/L (7-56); AST/SGOT 25 U/L (14-36); BLOOD UREA NITROGEN 17 mg/dL (7-21); CALCIUM 9.3 mg/dL (8.4-10.5); GFR NON-AFRICAN AMERICAN > 60
[2018-03-19] MEDS ORDERED: Potassium Chloride 20 mEq ER Tab PO STA (01:06)
[2018-03-19] MEDS ORDERED: Sodium Chloride 0.9% 1,000 ML IV SCH (01:15)
[2018-03-19] MEDS ORDERED: Oxycodone/Acetaminophen 5/325 mg Tab PO STA (01:18)
[2018-03-19 01:42] LABS: FREE T4 1.36 ng/dL (0.78-2.19)
[2018-03-19] MEDS ORDERED: Morphine 4 mg/ml ISec IVP STA (01:48)
[2018-03-19] MEDS ORDERED: Morphine 4 mg/ml ISec ONE (02:17)
[2018-03-19 07:57] VITALS: BP 110/74; PULSE 110; O2SAT 97
--- NOTE | 2018-03-19 08:29 | CT ---
Date of service: 03/19/2018 PROCEDURE: CT HEAD WITHOUT CONTRAST. HISTORY: headache COMPARISON: None available. TECHNIQUE: Axial computed tomography images were obtained through the head/brain without intravenous contrast. Radiation dose: Total exam DLP = 885.64 mGy-cm. This CT exam was performed using one or more of the following dose reduction techniques: Automated exposure control, adjustment of the mA and/or kV according to patient size, and/or use of iterative reconstruction technique. FINDINGS: HEMORRHAGE: No intracranial hemorrhage. BRAIN: No mass effect or edema. No atrophy or chronic microvascular ischemic changes. VENTRICLES: Unremarkable. No hydrocephalus. CALVARIUM: Unremarkable. PARANASAL SINUSES: Unremarkable as visualized. No significant inflammatory changes. MASTOID AIR CELLS: Unremarkable as visualized. No inflammatory changes. OTHER FINDINGS: The report concurs with the preliminary [facility] report IMPRESSION: No acute findings
--- NOTE | 2018-03-19 09:09 | RAD ---
Date of service: 03/19/2018 HISTORY: medical clearance COMPARISON: 07/19/2015 FINDINGS: LUNGS: No active pulmonary disease. PLEURA: No significant pleural effusion identified, no pneumothorax apparent. CARDIOVASCULAR: No aortic atherosclerotic calcification present. Normal cardiac size. No pulmonary vascular congestion. OSSEOUS STRUCTURES: No significant abnormalities. VISUALIZED UPPER ABDOMEN: Normal. OTHER FINDINGS: None. IMPRESSION: No active disease.
--- NOTE | 2018-03-19 09:28 | CARD ---
APPROVED REPORT Date of service: 03/19/2018 EKG Measurement Heart [id number] <Conclusion> Sinus tachycardia Nonspecific ST changes Abnormal Electrocardiogram
== END 2018-03-19 02:30 | disposition left against medical advice (07) ==
LOC: ED 20:30
DX: J32.9 Chronic sinusitis, unspecified (principal); E87.6 Hypokalemia; E05.90 Thyrotoxicosis, unspecified without thyrotoxic crisis or storm; R51 Headache
CPT/HCPCS: 70450; 71045; 80053; 84439; 84443; 85025; 85378; 87804; 93005; 96361; 96374; 96375; 99285; J1885; J2270; J2765; J7030

== ENCOUNTER 2018-03-19 12:52 | Emergency (ER) | payer MEDICAID ==
[2018-03-19 12:58] VITALS: BMI 25.0
[2018-03-19] MEDS ORDERED: DiphenhydrAMINE 50 mg/ml Inj IVP STA (14:02)
[2018-03-19] MEDS ORDERED: Apap-Butalbital-Caffeine 325-50-40mg Tab PO ONE (14:03)
[2018-03-19] MEDS ORDERED: Sodium Chloride 0.9% 1,000 ML IV STA ×2 (14:03→16:42)
--- NOTE | 2018-03-19 14:15 | ED PDOC ---
Arrival/HPI <Gopi Wilkinson - Last Filed: 03/19/18 17:51> - History of Present Illness Narrative History of Present Illness (Text): This is a 28 year old female with no significant PMH who presents with worsening headache for the past 2 days. Pt states her headache started yesterday while sitting and watching TV. Headache is described as frontal pain, 8/10, radiating to the back of the head and neck, without alleviating factors. Pain is worse when laying flat. Denies fever, chills, chest pain, visual changes, chest pain, sob, abdominal pain, n/v/d, urinary complaints. Pt was seen in the ED yesterday for c/o nasal congestion/sinus headache/vomiting and dry coughing x 3 days. At that time she had CBC, CMP, urine test, DDimer, CXR done, which were all negative. Head Ct showed no acute findings (see full report). EKG showed ST @ 111 BPM, no ST elevation or depression, no T wave inversion. 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 Pt was treated with Toradol and Reglan with some alleviation of symptoms but the pain returned. She was given Percocet, with similar results. She then recieived morphine 4 mg IV without complete resolutiono of symptoms. ED physician recommended the patient to have lumbar puncture to check the pressure and admission for neurologist and cardiac monitoring but she refused to continue the care or any procedure, stated that she wants to go home after morphine 4mg IV. Pt was signed out AMA and given prescription for Augmentin, Zofran, Flonase, Claritin, Ibuprofen PMD: Fercho PMH: denies PSH: [place] tooth extraction Meds: Augmentin, Zofran, Flonase, Claritin, Ibuprofen Allx: NKDA Social hx: (-) etoh, (+) 1/2 PPD current smoker, (-) drugs <Alfredito Mendoza - Last Filed: 03/22/18 12:13> - General Chief Complaint: Headache Time Seen by Provider: 03/19/18 13:16 Past Medical History - Provider Review Nursing Documentation Reviewed: Yes - Infectious Disease Hx of Infectious Diseases: None - Tetanus Immunization Tetanus Immunization: Unknown - Past Medical History Past Medical History: No Previous - Cardiac Hx Cardiac Disorders: No - Pulmonary Hx Asthma: Yes - Neurological Hx Neurological Disorder: No - HEENT Hx HEENT Disorder: No - Renal Hx Renal Disorder: No - Endocrine/Metabolic Hx Endocrine Disorders: No - Hematological/Oncological Hx Blood Disorders: No - Integumentary Hx Dermatological Disorder: No - Musculoskeletal/Rheumatological Hx Falls: No - Gastrointestinal Hx Gastrointestinal Disorders: No - Genitourinary/Gynecological Hx Genitourinary Disorders: No - Psychiatric Hx Psychophysiologic Disorder: No Hx Substance Use: Yes (quit) - Past Surgical History Past Surgical History: No Previous - Anesthesia Hx Anesthesia: No Hx Anesthesia Reactions: No Hx Malignant Hyperthermia: No - Suicidal Assessment Feels Threatened In Home Enviroment: No <Alfredito Mendoza - Last Filed: 03/22/18 12:13> Family/Social History - Physician Review Nursing Documentation Reviewed: Yes Family/Social History: Unknown Family HX Smoking Status: Current Some Days Smoker Hx Alcohol Use: No Hx Substance Use: Yes (quit) Substance used: PCP Hx Substance Use Treatment: No <Alfredito Mendoza - Last Filed: 03/22/18 12:13> Allergies/Home Meds <Gopi Wilkinson - Last Filed: 03/19/18 17:51> <Alfredito Mendoza - Last Filed: 03/22/18 12:13> Allergies/Adverse Reactions: Allergies nicotine Allergy (Verified 03/19/18 13:23) RASH Review of Systems - Review of Systems Constitutional: Normal. absent: Fevers Eyes: Normal, Photophobia ENT: Hearing Changes (right sided muffled sounds) Respiratory: Normal Cardiovascular: Normal Gastrointestinal: Nausea, Vomiting. absent: Abdominal Pain, Diarrhea Genitourinary Female: Normal Musculoskeletal: Neck Pain Skin: Normal Neurological: Headache. absent: Dizziness, Focal Weakness, Speech Changes, Facial Droop Endocrine: Normal Hemo/Lymphatic: Normal Psychiatric: Normal <Alfredito Mendoza - Last Filed: 03/22/18 12:13> Physical Exam Vital Signs Temp Pulse Resp BP Pulse Ox 03/19/18 12:55 98.0 F 12 L 18 129/83 99 <Gopi Wilkinson - Last Filed: 03/19/18 17:51> Vital Signs Temp Pulse Resp BP Pulse Ox 03/19/18 12:55 98.0 F 12 L 18 129/83 99 Temperature: Afebrile Blood Pressure: Normal Pulse: Tachycardic (approximately 120) Respiratory Rate: Normal Appearance: Positive for: Non-Toxic, Comfortable Pain Distress: Mild Mental Status: Positive for: Alert and Oriented X 3 - Systems Exam Head: Present: Atraumatic, Normocephalic, Tenderness (bilateral frontal sinus tenderness to palpation) Pupils: Present: PERRL Extroacular Muscles: Present: EOMI Conjunctiva: Present: Normal Ears: Present: Erythema (of the canal) Mouth: Present: Moist Mucous Membranes Pharnyx: Present: ERYTHEMA. No: EXUDATE, TONSILS ENLARGED Neck: Present: Normal Range of Motion, MIDLINE TENDERNESS, Paraspinal Tenderness (bilateral paravetebral tenderness to palpation). No: Meningeal Signs (negative brudzinski sign, negative kernig sign) Respiratory/Chest: Present: Clear to Auscultation Cardiovascular: Present: Normal S1, S2, Tachycardic Abdomen: Present: Normal Bowel Sounds. No: Tenderness, Distention, Rebound, Guarding Upper Extremity: Present: Normal Inspection, NORMAL PULSES. No: Edema Lower Extremity: Present: Normal Inspection, NORMAL PULSES. No: Edema, CALF TENDERNESS Neurological: Present: GCS=15, CN II-XII Intact, Speech Normal, Motor Func Grossly Intact Skin: Present: Warm, Dry Psychiatric: Present: Alert, Oriented x 3 <Alfredito Mendoza - Last Filed: 03/22/18 12:13> Medical Decision Making - Medication Orders Current Medication Orders: Sodium Chloride (Sodium Chloride 0.9%) 1,000 mls @ 999 mls/hr IV .Q1H1M STA Stop: 03/19/18 17:42 Last Admin: 03/19/18 17:06 Dose: 999 mls/hr eMAR Start Stop Document 03/19/18 17:06 MR (Rec: 03/19/18 17:06 MR [facility]-ER-[email or web address]) Intravenous Solution Start Date 03/19/18 Start Time 17:06 End Date 03/19/18 End time 18:06 Total Infusion Time 60 Discontinued Medications Acetaminophen/Butalbital/Caffeine (Fioricet) 1 tab PO ONCE ONE Stop: 03/19/18 14:04 Last Admin: 03/19/18 14:34 Dose: 1 tab MAR Pain Assessment Document 03/19/18 14:34 MR (Rec: 03/19/18 14:35 MR [facility]-ER-[email or web address]) Pain Reassessment Is this a pain reassessment? Yes Sleep Is patient sleeping during reassessment? 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 Description Description Constant Intensity of Pain at present 6 Alleviating Factors/Management Medication Techniques Alleviating Factors Medication Dexamethasone (Decadron Inj) 10 mg IVP STAT STA Stop: 03/19/18 14:03 Last Admin: 03/19/18 14:35 Dose: 10 mg IVP Administration Document 03/19/18 14:35 MR (Rec: 03/19/18 14:35 MR [facility]-ER-[email or web address]) Charges for Administration # of IVP Administrations 1 Diphenhydramine HCl (Benadryl) 50 mg IVP STAT STA Stop: 03/19/18 14:03 Last Admin: 03/19/18 14:35 Dose: 50 mg IVP Administration Document 03/19/18 14:35 MR (Rec: 03/19/18 14:35 [facility]-20) Charges for Administration # of IVP Administrations 1 Sodium Chloride (Sodium Chloride 0.9%) 1,000 mls @ 999 mls/hr IV .Q1H1M STA Stop: 03/19/18 15:03 Last Admin: 03/19/18 14:37 Dose: 999 mls/hr eMAR Start Stop Document 03/19/18 14:37 MR (Rec: 03/19/18 14:37 [facility] Intravenous Solution Start Date 03/19/18 Start Time 14:37 End Date 03/19/18 End time 15:37 Total Infusion Time 60 <Bosompem,Gopi - Last Filed: 03/19/18 17:51> ED Course and Treatment: Pt had CBC, CMP, DDimer, CXR, Head CT done within the last 12 hours, which were significant for 3.4 potassium which was repleted with 20 meq orally. Will give fioricet, benadryl, decadron and NS IVF 1 L bolus and re-evaluate. Reassessment Condition: Re-examined, Improved - Medication Orders Current Medication Orders: Sodium Chloride (Sodium Chloride 0.9%) 1,000 mls @ 999 mls/hr IV .Q1H1M STA Stop: 03/19/18 15:03 Discontinued Medications Acetaminophen/Butalbital/Caffeine (Fioricet) 1 tab PO ONCE ONE Stop: 03/19/18 14:04 Dexamethasone (Decadron Inj) 10 mg IVP STAT STA Stop: 03/19/18 14:03 Diphenhydramine HCl (Benadryl) 50 mg IVP STAT STA Stop: 03/19/18 14:03 <Alfredito Mendoza - Last Filed: 03/22/18 12:13> Disposition/Present on Arrival - Present on Arrival Any Indicators Present on Arrival: No - Disposition Have Diagnosis and Disposition been Completed?: Yes Disposition Time: 17:32 Patient Plan: Discharge <Gopi Wilkinson - Last Filed: 03/19/18 17:51> - Present on Arrival Any Indicators Present on Arrival: No History of DVT/PE: No History of Uncontrolled Diabetes: No Urinary Catheter: No History of Decub. Ulcer: No History Surgical Site Infection Following: None - Disposition Have Diagnosis and Disposition been Completed?: Yes Patient Plan: Discharge <Alfredito Mendoza - Last Filed: 03/22/18 12:13> - Disposition Diagnosis: Headache Disposition: HOME/ ROUTINE Condition: IMPROVED Discharge Instructions (ExitCare): Migraine Headache (DC), Cluster Headache (DC) Print Language: MALAY Prescriptions: Acetaminophen/Butalbital/Caf [Fioricet] 1 tab PO PRN PRN #4 tab PRN Reason: Headache Referrals: Awilda Valdez DO [[facility]] - Follow up with primary Forms: [employer] (Panamanian)
[2018-03-19 18:35] VITALS: BP 123/79; PULSE 99; RESP 16; TEMP 98.6; O2SAT 98
== END 2018-03-19 18:34 | disposition home or self-care (01) ==
LOC: ED 12:52
DX: R51 Headache (principal); F17.210 Nicotine dependence, cigarettes, uncomplicated
CPT/HCPCS: 96361; 96374; 96375; 99285; J1100; J1200; J7030